=== PATIENT | male | born 1990 | race African-American/Black ===

== ENCOUNTER 2021-11-02 15:17 | Emergency (ER) | payer OTHER, SELFPAY ==
[2021-11-02 16:06] VITALS: BP 128/71; PULSE 64; RESP 16; TEMP 36.7; O2SAT 99; BMI 29.0
--- NOTE | 2021-11-02 19:11 | ED_ITS ---
HPI - Back Pain/Injury <Misty Rajput PA-C - Last Filed: 11/02/21 19:30> General Chief Complaint: Back Pain/Injury Stated Complaint: SOFTBALL INJURY TO LOWER LEFT BACK Time Seen by Provider: 11/02/21 18:52 History of Present Illness HPI Narrative: Patient is a 31-year-old male presenting today with left-sided lateral abdominal wall pain for 1 day. He was playing softball and swinging a bat last night when he felt an immediate sharp pain in his left side. He reports the pain as dull and a 4/10. He is able to ambulate normally. The pain is worse with laughing, coughing, and twisting. He came into the ER today because he was concerned the pain may be due to his kidney. He denies any neck pain, back pain, dizziness, headache, nausea, vomiting, dysuria, burning with urination, abdominal pain, or radiating pain. He has not taken any pain medication and reports that icing his injury improved his symptoms. Related Data Allergies Allergy/AdvReac Type Severity Reaction Status Date / Time No Known Drug Allergies Allergy Verified 11/02/21 16:10 Review of Systems <Misty Rajput PA-C - Last Filed: 11/02/21 19:30> Review of Systems ROS Unobtainable: All systems reviewed & are unremarkable except as noted in HPI and below Constitutional Constitutional: Denies fatigue, Denies fever(s), Denies headache(s) and Denies weakness Eyes Eyes: Denies change in vision, Denies irritation and Denies loss of vision ENT Ears, Nose, Mouth, and Throat: Denies dizziness, Denies headache(s) and Denies neck pain Cardiovascular Cardiovascular: Denies chest pain, Denies lightheadedness and Denies dyspnea Respiratory Respiratory: Denies cough, Denies dyspnea and Denies wheezing Gastrointestinal Gastrointestinal: Reports abdominal pain, Denies change in bowel habits, Denies nausea and Denies vomiting Genitourinary Genitourinary: Denies hematuria, Denies difficulty urinating, Denies dysuria, Reports flank pain and Denies urinary urgency Musculoskeletal Musculoskeletal: Reports as per HPI, Denies abnormal gait, Denies back pain, Denies muscle weakness, Reports myalgias, Denies neck pain, Denies numbness, Denies radiating pain into limb and Denies tingling Integumentary/Breasts Skin/Breast: Denies erythema, Denies rash and Denies skin swelling Neurologic Neurologic: Denies abnormal gait, Denies behavioral changes, Denies confusion, Denies dizziness, Denies headache(s), Denies loss of vision, Denies numbness, Denies tingling and Denies weakness Psychiatric Psychiatric: Reports system reviewed and no additional complaints, except as documented, Denies behavioral changes and Denies confusion Endocrine Endocrine: Reports system reviewed and no additional complaints, except as documented and Denies fatigue Hematologic/Lymphatic Hematologic/Lymphatic: Reports system reviewed and no additional complaints, except as documented Allergic/Immunologic Allergic/Immunologic: Reports system reviewed and no additional complaints, except as documented and Denies wheezing Patient History <Misty Rajput PA-C - Last Filed: 11/02/21 19:30> Social History Smoking Status: Never smoker Smoking Status: Never smoker alcohol intake frequency: a few times a month Substance Use Type: does not use Exam <Misty Rajput PA-C - Last Filed: 11/02/21 19:30> Narrative Exam Narrative: GENERAL: 31 year old patient appears stated age. Well-developed patient, in no distress. HEAD: Atraumatic. Normocephalic. EYES: Pupils equal round and reactive. Extraocular motions intact. No scleral icterus. No injection or drainage. ENT: Nose without bleeding, purulent drainage. Throat without erythema, tonsillar hypertrophy or exudate. Airway patent. NECK: Trachea midline. Non tender CARDIOVASCULAR: Regular rate and rhythm without murmurs, gallops, or rubs. RESPIRATORY: Clear to auscultation. Breath sounds equal bilaterally. No wheezes, rales, or rhonchi. GASTROINTESTINAL: Abdomen soft, non-tender, nondistended. Localized pain elicited upon palpation of left external oblique. EXTREMITIES: No edema or joint tenderness. Ambulates well. Exhibits full ROM. BACK: Nontender without deformity or crepitance. No CVA tenderness. NEURO: AOx3. SKIN: No rash or erythema of visible areas Initial Vital Signs Initial Vital Signs: Vital Signs Temperature 98.0 F 11/02/21 16:06 Pulse Rate 64 11/02/21 16:06 Respiratory Rate 16 11/02/21 16:06 Blood Pressure 128/71 11/02/21 16:06 Pulse Oximetry 99 11/02/21 16:06 <Manoj Reeves DO - Last Filed: 11/04/21 01:26> Initial Vital Signs Initial Vital Signs: Vital Signs Temperature 98.0 F 11/02/21 16:06 Pulse Rate 64 11/02/21 16:06 Respiratory Rate 16 11/02/21 16:06 Blood Pressure 128/71 11/02/21 16:06 Pulse Oximetry 99 11/02/21 16:06 Course <Misty Rajput PA-C - Last Filed: 11/02/21 19:30> Vital Signs Vital signs: Vital Signs - 8 hr 11/02/21 16:06 Temperature 98.0 F Pulse Rate 64 Respiratory Rate 16 Blood Pressure 128/71 Pulse Oximetry 99 <Manoj Reeves DO - Last Filed: 11/04/21 01:26> Vital Signs Vital signs: Vital Signs - 8 hr 11/02/21 16:06 Temperature 98.0 F Pulse Rate 64 Respiratory Rate 16 Blood Pressure 128/71 Pulse Oximetry 99 MDM - Back Pain/Injury <Misty Rajput PA-C - Last Filed: 11/02/21 19:30> Lab Data Labs: Urine Dip Bedside Urine Glucose Negative Bedside Urine Bilirubin - Negative Bedside Urine Ketone - Negative Urine Specific [place] 1.030 Bedside Urine Occult Blood - Negative Bedside Urine pH 6.0 Bedside Urine Protein - Negative Bedside Urine Urobilinogen - Negative Bedside Urine Nitrite - Negative Bedside Urine Leukocytes - Negative Esterase MDM Narrative Medical decision making narrative: Patient is a 31-year-old man presenting with left-sided lateral abdominal pain for 1 day. The pain first began while he was swinging a bat but he was concerned it may be due to his kidney. Urinalysis came back as negative. Upon physical exam, his pain was reproducible and centralized to palpation of the left external oblique. His pain does not radiate anywhere and he had no CVA tenderness. He also exhibited full range of motion. Based on these findings, his pain is likely due to a muscle strain of his abdominal wall. I instructed patient to take ibuprofen as needed for pain and inflammation control, to rest, to continue icing his injury, and to refrain from any twisting motions until his pain improves. Findings and discharge diagnosis discussed with patient/family followed by verbalization of understanding. Return precautions discussed with patient/family whom verbalize understanding. <Manoj Reeves DO - Last Filed: 11/04/21 01:26> Lab Data Labs: Urine Dip Bedside Urine Glucose Negative Bedside Urine Bilirubin - Negative Bedside Urine Ketone - Negative Urine Specific [place] 1.030 Bedside Urine Occult Blood - Negative Bedside Urine pH 6.0 Bedside Urine Protein - Negative Bedside Urine Urobilinogen - Negative Bedside Urine Nitrite - Negative Bedside Urine Leukocytes - Negative Esterase Discharge Plan Departure Patient Disposition: Home Clinical Impression: Muscle strain Activity Restrictions/Additional Instructions: *You have been diagnosed with a muscle strain. You can take ibuprofen as needed with food for pain and inflammation control, and should rest and ice your injury as needed. You should also try to limit any twisting motions until the pain has improved. Please return to the ER if the pain continues to worsen, radiate, or you develop shortness of breath. I hope you feel better soon. *What to do: *Please continue to take your regular medications as directed. [ ] New medication prescriptions sent to your pharmacy: [ ] [ ] New medication written as a paper prescription [X] No new medications given *Please follow up with your primary care provider in 2-3 days, call for an appointment. Let them know you were seen in the Emergency Department and that we ask that you be seen in follow up. We will electronically transmit a record of today's note if your PCP is in our system *If you do not have a primary care provider please contact the [facility] at [phone] and they can help get you set up with a doctor in the community. *Return to Emergency Department if you should have any new, worsening or concerning symptoms, such as [fever greater than 101 F, shaking chills, worsening pain, persistent vomiting or other bothersome symptoms] <Manoj Reeves DO - Last Filed: 11/04/21 01:26> Cosign ED Attending Coscoyature Attestation: I was immediately available in the department for consultation. This documentation has been reviewed and I agree with assessment and plan. Supervised by Manoj Reeves DO
== END 2021-11-02 19:15 | disposition home or self-care (01) ==
PROVIDERS: Emergency Provider Physician Assistant
DX: S39.011A Strain of muscle, fascia and tendon of abdomen, initial encounter (principal)
CPT/HCPCS: 81003; 99281; 99282

== ENCOUNTER 2021-12-07 19:43 | Emergency (ER) | payer OTHER, SELFPAY ==
[2021-12-07 19:53] VITALS: BP 136/77; PULSE 100; RESP 18; TEMP 39.3; O2SAT 98; BMI 29.5
[2021-12-07 20:14] VITALS: TEMP 39.3
[2021-12-07] MEDS: ACETAMINOPHEN 325 MG TABLET 975 MG PO (20:14)
--- NOTE | 2021-12-07 20:23 | ED_ITS ---
HPI - Sepsis General Chief Complaint: Fever Mode of arrival: Ambulatory Source: patient Evaluation Sepsis Screen: No Definite Risk Sepsis Infection Criteria Present: None Narrative: 31-year-old male nonsmoker with noncontributory medical history presents with a child and his in the chief complaint of multiple upper respiratory complaints including runny nose, nasal congestion, sore throat and a dry hacking cough for the past 24 hours. His biggest concern, however is the presence of a fever as high as 103 which had improved with the use of Tylenol. He denies any GI complaints such as nausea, vomiting or diarrhea. He denies any significant shortness of breath or chest pain. He has had no recent travel denies any obvious exposure to persons with known or suspected COVID. 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 : Denies dysuria, frequency, incontinence, hematuria, urinary retention. MUSCULOSKELETAL: denies weakness, joint pain, or bony pain SKIN: Denies rash, skin lesions, or other NEUROLOGIC: Denies weakness, headache, numbness, change in speech, confusion, seizures, incoordination. PSYCHIATRIC: No concerning psychosocial issues. 12 point review of systems is negative except for those stated above Patient History Social History Smoking Status: Never smoker Smoking Status: Never smoker alcohol intake frequency: a few times a month Substance Use Type: does not use Exam Narrative Exam Narrative: GENERAL: [31] year old patient appears stated age. Well-developed patient, in mild distress. HEAD: Atraumatic. Normocephalic. EYES: Pupils equal round and reactive. Extraocular motions intact. No scleral icterus. No injection or drainage. ENT: Nose without bleeding, purulent drainage. Throat without erythema, tonsillar hypertrophy or exudate. Airway patent. NECK: Trachea midline. Non tender CARDIOVASCULAR: Regular rate and rhythm without murmurs, gallops, or rubs. RESPIRATORY: Clear to auscultation. Breath sounds equal bilaterally. No wheezes, rales, or rhonchi. GASTROINTESTINAL: Abdomen soft, non-tender, nondistended. EXTREMITIES: No edema or joint tenderness. BACK: Nontender without deformity or crepitance. No flank tenderness. NEURO: AOx3. SKIN: No rash or erythema of visible areas Initial Vital Signs Initial Vital Signs: Vital Signs Temperature 102.7 F H 12/07/21 19:53 Pulse Rate 100 H 12/07/21 19:53 Respiratory Rate 18 12/07/21 19:53 Blood Pressure 136/77 12/07/21 19:53 Pulse Oximetry 98 12/07/21 19:53 Oxygen Delivery Method 12/07/21 19:53 Course Orders Ordered: ED Orders 12/07/21 20:17 COVID19 -Nasal RAPID/Pre-Proc Stat Discontinued Medications Acetaminophen (Acetaminophen 325 Mg Tablet) 975 mg PO NOW ONE Stop: 12/07/21 20:03 Last Admin: 12/07/21 20:14 Dose: 650 mg Documented By: NR Vital Signs Vital signs: Vital Signs - 8 hr 12/07/21 20:14 12/07/21 21:09 12/07/21 21:10 Temperature 102.8 F H 99.8 F H 99.6 F Pulse Rate 93 H Respiratory Rate 18 Blood Pressure 135/67 Pulse Oximetry 96 Oxygen Delivery Method Room Air Sepsis Guideline Criteria Level 1 - Infection Sepsis Infection Criteria Present: None Treatment Initiated Antibiotics:: IV antimicrobials will be initiated as soon as possible after recognition of sepsis state and within one hour for both sepsis and septic shock. MDM - Sepsis Lab Data Labs: Lab Results 12/07/21 Range/Units 20:17 SARS-CoV-2 (PCR) Positive H (Negative) MDM Narrative Medical decision making narrative: Patient with very reassuring history and physical exam, no significant work of breathing, use of accessory muscles or hypoxemia. No GI complaints such as nausea, vomiting or diarrhea. There is no indication for significant workup. Patient is not a candidate for antivirals. Return precautions discussed and questions answered to his apparent satisfaction Discharge Plan Departure Patient Disposition: Home Clinical Impression: COVID-19 Instructions: DI for COVID-19 (Suspected or Confirmed ) Activity Restrictions/Additional Instructions: *You have been diagnosed with [ COVID-19] *What to do: ?* per recommendations from the CDC and the [facility] Department of Health ?* stay home except to get medical care. ?Restrict activities outside your home, except for getting medical care. ?Do not go to work, school, or public areas. ?Avoid using public transportation, ride sharing, or taxis. ?* separate yourself from other people in your home. ?* call ahead before visiting your doctor ?* Wear a facemask ?* Cover your coughs and sneezes ?* Clean your hands often ?* Avoid sharing household items ?* Clean all high-touch services every day ?* Monitor your symptoms and seek prompt medical attention if your illness is worsening, particularly with difficulty in breathing. You may discontinue your isolation when: ?1. You have been fever-free for at least 24 hours without the use of fever reducing medication, AND ?2. Your symptoms are getting better, AND ?3. At least 5 days have passed since symptoms first appeared ?4. If you have fever, continue to stay home until fever resolves Individuals with laboratory confirmed COVID-19 who have not had any symptoms may discontinue home isolation when at least 5 days have passed since the date of their first COVID-19 diagnostic test and have had no subsequent illness You should notifiy any friends and family that have been in close contact *If up to date on COVID Vaccines, then they do not need to quarantine unless symptoms develop. Get tested on day 5 (or sooner if symptoms develop). Take precautions and watch for symptoms until day 10 *If NOT up to date on COVID Vaccines, then CDC recommends quarantine for at least 5 full days. Wear a well fitted mask at home if you must be around others. If they ?develop symptoms they should get tested. If they remain asymptomatic they should get tested on day 5. They should take precautions and monitor for symptoms until day 10. Referrals: Miscellaneous,Doctor, MD [Primary Care Provider] - Visit Report Forms: Patient Portal/API
[2021-12-07 20:40] LABS: COVID19 -Nasal RAPID POSITIVE (Negative)
[2021-12-07 21:09] VITALS: TEMP 37.7
[2021-12-07 21:10] VITALS: BP 135/67; PULSE 93; RESP 18; TEMP 37.6; O2SAT 96
== END 2021-12-07 21:11 | disposition home or self-care (01) ==
PROVIDERS: Emergency Provider Emergency Medicine
DX: U07.1 COVID-19 (principal)
CPT/HCPCS: 87635; 99282; 99283; C9803